=== PATIENT | female | born 1975 | race Hispanic/Latino ===

== ENCOUNTER 2019-03-25 14:18 | Emergency (ER) | payer SELFPAY ==
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
== END 2019-03-25 15:39 | disposition home or self-care (01) ==
LOC: ER 14:18
DX: S00.90XA Unspecified superficial injury of unspecified part of head, initial encounter (principal); Y04.0XXA Assault by unarmed brawl or fight, initial encounter
CPT/HCPCS: 70450; 70486; 76377; 99284